=== PATIENT | male | born 1995 | race African-American/Black ===

== ENCOUNTER 2025-05-26 14:52 | Emergency (ER) | payer BC, SELFPAY ==
[2025-05-26] MEDS ORDERED: Dicyclomine 20 MG TAB ONE (16:30)
== END 2025-05-26 16:29 | disposition home or self-care (01) ==
LOC: CSHERS 14:52
DX: R19.7 Diarrhea, unspecified (principal); F17.210 Nicotine dependence, cigarettes, uncomplicated
CPT/HCPCS: 99283

== ENCOUNTER 2025-08-21 05:28 | Emergency (ER) | payer SELFPAY ==
[2025-08-21] MEDS ORDERED: Tetracaine 0.5% PF 4 ML BOT ONE (05:46)
[2025-08-21] MEDS ORDERED: Fluorescein Opthalmic Strip ONE (05:46)
== END 2025-08-21 05:58 | disposition home or self-care (01) ==
LOC: CSHERS 05:28
DX: H00.14 Chalazion left upper eyelid (principal); H10.502 Unspecified blepharoconjunctivitis, left eye; F17.210 Nicotine dependence, cigarettes, uncomplicated
CPT/HCPCS: 99283